=== PATIENT | female | born 1995 | race Caucasian/White ===

== ENCOUNTER → 2023-11-02 | Outpatient (REF) | payer OTHER ==
[2023-11-06 15:09] LABS: HPV APTIMA Negative (Negative)
== END ==
LOC: M SFHCWAGY 15:00
PROVIDERS: ATTEND Nurse Practitioner Family
DX: Z12.4 Encounter for screening for malignant neoplasm of cervix (principal)

== ENCOUNTER 2023-11-28 19:31 | Emergency (ER) | payer OTHER ==
[~2023-11-28] VITALS: Ht 167.6 cm; Wt 70.7 kg
[2023-11-28 19:31] VITALS: BP 124/77; TEMP 99.2; O2SAT 100
[2023-11-28] MEDS ORDERED: AMOX875T2 PO (19:36)
[2023-11-28] MEDS ORDERED: RABIES IMMUNE GLOBULIN 1500 INTERNATIONAL UNIT/5ML VIAL IM.IMMUN ONE (22:55)
[2023-11-28] MEDS: RABIES VACCINE HUMAN 2.5 INTERNATIONAL UNITS/ML VIAL IM.IMMUN ONE (23:53)
== END 2023-11-29 00:20 | disposition home or self-care (01) ==
LOC: M ED 19:31
DX: S30.811A Abrasion of abdominal wall, initial encounter (principal); W54.0XXA Bitten by dog, initial encounter; Y92.9 Unspecified place or not applicable; Y93.9 Activity, unspecified; Y99.9 Unspecified external cause status; F17.210 Nicotine dependence, cigarettes, uncomplicated; Z29.14 Encounter for prophylactic rabies immune globulin; Z23 Encounter for immunization; Z91.09 Other allergy status, other than to drugs and biological substances; Z79.2 Long term (current) use of antibiotics

== ENCOUNTER 2023-12-01 11:12 | Emergency (ER) | payer OTHER ==
[~2023-12-01] VITALS: Ht 167.6 cm; Wt 70.1 kg
[2023-12-01 11:12] VITALS: BP 127/79; TEMP 98.2; O2SAT 100
[~2023-12-01 11:12] MED LIST: AMOX875T2 PO
[2023-12-01] MEDS: RABIES VACCINE HUMAN 2.5 INTERNATIONAL UNITS/ML VIAL IM ONE (11:21)
== END 2023-12-01 11:36 | disposition home or self-care (01) ==
LOC: M ED 11:12
DX: Z29.14 Encounter for prophylactic rabies immune globulin (principal); Z23 Encounter for immunization; Z91.09 Other allergy status, other than to drugs and biological substances; Z79.2 Long term (current) use of antibiotics

== ENCOUNTER 2023-12-05 18:32 | Emergency (ER) | payer OTHER ==
[~2023-12-05] VITALS: Ht 167.6 cm; Wt 69.4 kg
[2023-12-05 18:34] VITALS: BP 131/72; TEMP 98.1; O2SAT 98
[2023-12-05] MEDS: RABIES VACCINE HUMAN 2.5 INTERNATIONAL UNITS/ML VIAL IM ONE (20:50)
== END 2023-12-05 20:59 | disposition home or self-care (01) ==
LOC: M ED 18:32
DX: Z29.14 Encounter for prophylactic rabies immune globulin (principal); Z23 Encounter for immunization; F17.210 Nicotine dependence, cigarettes, uncomplicated; F10.10 Alcohol abuse, uncomplicated; Z91.09 Other allergy status, other than to drugs and biological substances; Z79.2 Long term (current) use of antibiotics

== ENCOUNTER 2023-12-12 20:48 | Emergency (ER) | payer OTHER ==
[~2023-12-12] VITALS: Ht 167.6 cm; Wt 70.9 kg
[2023-12-12 20:50] VITALS: BP 124/71; TEMP 98.1; O2SAT 96
== END 2023-12-12 23:24 | disposition left against medical advice (07) ==
LOC: M ED 20:48
DX: Z53.21 Procedure and treatment not carried out due to patient leaving prior to being seen by health care provider (principal)

== ENCOUNTER 2023-12-17 16:34 | Emergency (ER) | payer OTHER ==
[~2023-12-17] VITALS: Ht 167.6 cm; Wt 70.9 kg
[2023-12-17] MEDS: RABIES VACCINE HUMAN 2.5 INTERNATIONAL UNITS/ML VIAL IM ONE (18:01)
[2023-12-17 19:42] VITALS: BP 118/72; TEMP 98.1; O2SAT 100
== END 2023-12-17 19:43 | disposition home or self-care (01) ==
LOC: M ED 16:34
DX: Z29.14 Encounter for prophylactic rabies immune globulin (principal); Z23 Encounter for immunization; F17.210 Nicotine dependence, cigarettes, uncomplicated; F10.10 Alcohol abuse, uncomplicated; Z91.09 Other allergy status, other than to drugs and biological substances

== ENCOUNTER 2024-01-03 16:52 | Emergency (ER) | payer OTHER ==
[~2024-01-03] VITALS: Ht 167.6 cm; Wt 72.6 kg
[2024-01-03 16:52] VITALS: BP 117/69; TEMP 99.1; O2SAT 100
[2024-01-03] MEDS: RABIES VACCINE HUMAN 2.5 INTERNATIONAL UNITS/ML VIAL IM ONE (18:00)
== END 2024-01-03 18:15 | disposition home or self-care (01) ==
LOC: M ED 16:52
DX: Z29.14 Encounter for prophylactic rabies immune globulin (principal); Z23 Encounter for immunization; E06.3 Autoimmune thyroiditis; Z91.09 Other allergy status, other than to drugs and biological substances

== ENCOUNTER 2024-01-26 02:04 | Emergency (ER) | payer OTHER ==
[~2024-01-26] VITALS: Ht 167.6 cm; Wt 70.9 kg
[2024-01-26] MEDS: IBUPROFEN 600MG TAB PO ONE (07:12)
[2024-01-26 09:11] VITALS: BP 122/68; TEMP 98.1; O2SAT 99
== END 2024-01-26 09:13 | disposition home or self-care (01) ==
LOC: M ED 02:04 → EDBD 02:04 → M ED 09:13
DX: S01.01XA Laceration without foreign body of scalp, initial encounter (principal); W01.118A Fall on same level from slipping, tripping and stumbling with subsequent striking against other sharp object, initial encounter; F17.200 Nicotine dependence, unspecified, uncomplicated; F10.10 Alcohol abuse, uncomplicated; Y92.009 Unspecified place in unspecified non-institutional (private) residence as the place of occurrence of the external cause; Y93.89 Activity, other specified; Y99.9 Unspecified external cause status

== ENCOUNTER 2024-02-03 07:41 | Emergency (ER) | payer OTHER ==
[~2024-02-03] VITALS: Ht 167.6 cm; Wt 72.9 kg
[2024-02-03 07:42] VITALS: BP 108/70; TEMP 97; O2SAT 96
== END 2024-02-03 08:27 | disposition home or self-care (01) ==
LOC: M ED 07:41
DX: Z48.02 Encounter for removal of sutures (principal); F17.210 Nicotine dependence, cigarettes, uncomplicated; Z91.09 Other allergy status, other than to drugs and biological substances

== ENCOUNTER → 2024-04-09 | Outpatient (CLI) | payer OTHER ==
[2024-04-09 17:31] LABS: HEMATOCRIT 38.9 % (36.0-47.0); HEMOGLOBIN 13.5 g/dl (12.0-15.5); MEAN CORPUSCULAR HEMOGLOBIN 31.9 pg (27.0-33.0); MEAN CORPUSCULAR HGB CONC 34.7 g/dl (32.0-36.5); PLATELET COUNT, AUTOMATED 236 10^3/uL (150-450); RED BLOOD COUNT 4.23 10^6/uL (4.00-5.40); WHITE BLOOD COUNT 8.2 10^3/uL (4.0-10.0)
[2024-04-09 18:08] LABS: FREE T4 1.12 NG/DL (0.89-1.76); THYROID STIMULATING HORMONE 3.066 uIU/ML (0.55-4.78)
[2024-04-09 18:39] LABS: HIV 1&2 SCREEN NEGATIVE (NEGATIVE)
[2024-04-09 18:46] LABS: HEPATITIS C VIRUS ABY INDEX 0.03 INDEX (<0.8)
[2024-04-09 19:18] LABS: GC DNA AMPLIFICATION NEGATIVE (NEGATIVE)
== END ==
LOC: M PLALAB 14:54
PROVIDERS: ATTEND Nurse Practitioner Family
DX: Z34.81 Encounter for supervision of other normal pregnancy, first trimester (principal)

== ENCOUNTER → 2024-06-18 | Outpatient (CLI) | payer OTHER | LOC: M WHC 13:55 | PROVIDERS: ATTEND Nurse Practitioner Family | DX: Z34.82 Encounter for supervision of other normal pregnancy, second trimester (principal); Z3A.20 20 weeks gestation of pregnancy ==

== ENCOUNTER → 2024-07-29 | Outpatient (CLI) | payer OTHER ==
[2024-07-29 18:06] LABS: HEMATOCRIT 36.4 % (36.0-47.0); HEMOGLOBIN 12.3 g/dl (12.0-15.5); MEAN CORPUSCULAR HGB CONC 33.8 g/dl (32.0-36.5); MEAN CORPUSCULAR VOLUME 94.8 fl (80.0-96.0); PLATELET COUNT, AUTOMATED 223 10^3/uL (150-450); RED BLOOD COUNT 3.84 10^6/uL (4.00-5.40); WHITE BLOOD COUNT 10.1 10^3/uL (4.0-10.0)
[2024-07-29 18:21] LABS: GLUCOSE CHALLENGE TEST 1 HOUR 109 MG/DL (LESS THAN 140)
[2024-07-29 18:56] LABS: HIV 1&2 SCREEN NEGATIVE (NEGATIVE)
[2024-07-29 19:04] LABS: HEPATITIS C VIRUS ABY INDEX 0.11 INDEX (<0.8)
[2024-07-29 21:38] LABS: Trichomonas vaginalis (AMP) NOT DETECTED (NEGATIVE)
[2024-07-29 22:02] LABS: GC DNA AMPLIFICATION NEGATIVE (NEGATIVE)
== END ==
LOC: M PLALAB 14:11
PROVIDERS: ATTEND Nurse Practitioner Family
DX: Z34.80 Encounter for supervision of other normal pregnancy, unspecified trimester (principal)

== ENCOUNTER 2024-09-28 21:18 | Outpatient (CLI) | payer OTHER ==
[~2024-09-28] VITALS: Ht 167.6 cm; Wt 92.6 kg
[2024-09-28 21:36] VITALS: BP 134/86
[2024-09-28] MEDS ORDERED: ACET500P3 PO (21:50)
[2024-09-28] MEDS ORDERED: PRENTAB9 PO (21:50)
[2024-09-28 22:28] LABS: KETONE, URINE AUTO RFX NEGATIVE (NEGATIVE); MUCUS, URINE RFX SMALL (NEGATIVE); NITRITE, URINE AUTO RFX NEGATIVE (NEGATIVE); RBC, URINE AUTO RFX 27 /HPF (0-3); SQUAM EPITHELIAL CELL UR AURFX 5 /HPF (0-6)
[2024-09-28 22:29] LABS: LEUKOCYTE ESTERASE UR AUTO RFX 2+ (NEGATIVE); WBC, URINE AUTO RFX 71 /HPF (0-3)
[2024-09-28 23:23] VITALS: BP 117/67
[2024-09-29] MEDS ORDERED: MACR100C43 PO (00:51)
[2024-09-29] MEDS: NITROFURANTOIN (MACROBID) 100 MG CAP PO ONE (01:10)
== END 2024-09-29 01:15 | disposition home or self-care (01) ==
LOC: M LDO 21:18
PROVIDERS: ATTEND Obstetrics & Gynecology
DX: O23.13 Infections of bladder in pregnancy, third trimester (principal); N30.00 Acute cystitis without hematuria; O99.343 Other mental disorders complicating pregnancy, third trimester; O99.53 Diseases of the respiratory system complicating the puerperium; J45.20 Mild intermittent asthma, uncomplicated; F43.9 Reaction to severe stress, unspecified; F41.1 Generalized anxiety disorder; Z3A.34 34 weeks gestation of pregnancy
CPT/HCPCS: 59025; 81001; G0463

== ENCOUNTER → 2024-10-08 | Outpatient (REF) | payer OTHER ==
[~2024-10-08] MED LIST changes: +ACET-683 PO; +ACET500P3 PO; +IBUP80TA PO; +MACR100C43 PO; +PRENTAB9 PO
== END ==
LOC: M PLALAB 13:26
PROVIDERS: ATTEND Advanced Practice Midwife
DX: Z36.89 Encounter for other specified antenatal screening (principal); Z3A.36 36 weeks gestation of pregnancy